=== PATIENT | female | born 1965 | race Caucasian/White ===

== ENCOUNTER → 2016-08-21 | Outpatient (CLI) | payer OTHER ==
[~2016-08-21] MED LIST: ACHD5005 PO; CYCL10TA9 PO; DULO60CA6 PO; FLUT16SP22 NS; IBP600T1 PO; LRT10T PO; PROP1TAB77 PO
--- OUTSIDE RECORDS SUMMARY | 2016-08-21 15:50 | XMS REPORT ---
Author VERONIQUE Dennis Organization [employer] Address Unknown Phone Unavailable Care Team Providers Care Scientific Director Name Role Phone VERONIQUE SIMS CP Unavailable Allergies, Adverse Reactions, Alerts Substance Reaction Event Type Sulfamethoxazole Info Not Available Drug Allergy Problems Problem Type Condition Code Onset Dates Condition Status Problem Other seasonal allergic rhinitis J30.2 Active Problem Arthritis M19.90 Active Problem Anxiety F41.9 Active Assessment Pain in left hip M25.552 Active Assessment Pain in right hip M25.551 Active Medications Medication Code System Code Instructions Start Date End Date Status Dosage Diclofenac Sodium [facility] [address]-24 75 MG Orally Twice a day 1 tablet Omeprazole [facility] [address]-02 40 MG Orally Once a day Aug 01, 2015 1 capsule Citalopram Hydrobromide [facility] [address]-30 20 MG Orally Once a day 1 tablet Procedures Procedure Coding System Code Date Office Visit, Est Pt., Level 2 CPT-4 05668 Mar 20, 2016 DRAIN/INJECT, JOINT/BURSA CPT-4 72964 Mar 20, 2016 Vital Signs Date/Time: Mar 20, 2016 Cardiac Monitoring Heart Rate 72 bpm Weight 158.1 lbs Height 68 in BMI 24.04 Index Blood Pressure Diastolic 82 mmHg Blood Pressure Systolic 108 mmHg Results No Known Results Summary Purpose [employer] Submission
--- NOTE | 2016-08-21 16:24 | Diagnostic Imaging Report ---
EXAM: Three views of the left ribs. INDICATION: Left rib pain. FINDINGS: There is suggestion of a nondisplaced fracture along the anterior aspect of the left sixth rib. No displaced fracture. The left lung demonstrates pleural thickening in the apex with no pneumothorax. No effusion seen. IMPRESSION: Suggestion of a nondisplaced fracture along the anterior aspect of the left sixth rib. Report called to FARIDA Phillips, at 4:23 p.m. 08/21/2015/noemy Report faxed to [phone] Dictated by: Dictated on workstation # [id number]
== END ==
LOC: RAD 15:46
PROVIDERS: ATTEND Nurse Practitioner Family
DX: R07.81 Pleurodynia (principal)
CPT/HCPCS: 71100

== ENCOUNTER → 2018-04-16 | Outpatient (CLI) | payer OTHER ==
--- NOTE | 2018-04-17 19:32 | Diagnostic Imaging Report ---
INDICATION: Routine screening. COMPARISON: Prior mammogram from 05/20/2015 and 02/03/2014. EXAMINATION: 2D and 3D bilateral screening mammography was performed with CAD. FINDINGS: Scattered fibroglandular densities are identified, bilaterally. Slightly nodular densities are identified in the right breast, one of which is superiorly located and posterior and the second is inferiorly located and posterior. No corresponding density on the CC view is seen. The left breast is unremarkable. No suspicious calcifications are seen. IMPRESSION: BI-RADS 0. Right breast densities. Additional views including spot compression and 90 degree lateral views are recommended. Dictated by: Dictated on workstation # [id number]
== END ==
LOC: RAD 15:35
PROVIDERS: ATTEND Obstetrics & Gynecology
DX: Z12.31 Encounter for screening mammogram for malignant neoplasm of breast (principal)
CPT/HCPCS: 77067

== ENCOUNTER → 2018-05-19 | Outpatient (CLI) | payer OTHER ==
--- NOTE | 2018-05-19 15:20 | Diagnostic Imaging Report ---
INDICATION: Right breast densities. Patient presents for additional views. COMPARISON: Recent screening study from 04/16/2018. TECHNIQUE: 2D and 3D unilateral right diagnostic mammography was performed including an exaggerated CC view, spot compression ML views, and a conventional 90 degree lateral view. FINDINGS: The right breast is heterogeneously dense. Densities in the upper and lower posterior depth right breast are seen which appear to show some dispersion on spot compression 3D views. There is a small circumscribed nodule in the upper outer right breast that has benign features. This is separate from the ill-defined densities described on screening mammography. No spiculated mass is seen. No suspicious calcifications are identified. IMPRESSION: Additional views show some persistent mild density in the upper and lower outer aspect of the right breast, likely representing fibroglandular tissue. Even so, sonographic interrogation of these areas is recommended and will be performed today. ACR BI-RADS Category 0: Incomplete. (Needs additional imaging evaluation). Result letter will be mailed to the patient. Note: At least 10% of breast cancer is not imaged by mammography. Dictated by: Dictated on workstation # [id number]
--- NOTE | 2018-05-19 17:14 | Diagnostic Imaging Report ---
INDICATION: Asymmetric densities noted in the right breast. The study is performed for further evaluation. CORRELATION is made with a diagnostic mammogram earlier the same day and screening mammogram from 04/16/2018. FINDINGS: Sonographic interrogation of the upper and lower outer aspects of the right breast was performed. There is a benign-appearing lymph node at the 10 o'clock location of the right breast 7 cm from the nipple measuring approximately 3 mm x 4 mm. This is identified on the mammogram. No other sonographic abnormality is seen. No suspicious sonographic finding is seen to account for the asymmetric densities noted mammographically. These most likely represented fibroglandular tissue. IMPRESSION: BI-RADS category 3. No suspicious sonographic abnormality is seen. Even so, followup right mammogram in 6 months is recommended to confirm stability of previously noted densities. ACR BI-RADS Category 3: Probably benign findings. Result letter will be mailed to the patient. Note: At least 10% of breast cancer is not imaged by mammography. Dictated by: Dictated on workstation # [id number]
== END ==
LOC: RAD 14:20
PROVIDERS: ATTEND Obstetrics & Gynecology
DX: R92.2 Inconclusive mammogram (principal)

== ENCOUNTER → 2020-06-28 | Outpatient (CLI) | payer OTHER ==
--- NOTE | 2020-06-28 14:30 | Diagnostic Imaging Report ---
INDICATION: Screening. The current study was also evaluated with a Computer Aided Detection (CAD) system. 3-D Tomographic imaging was also performed. Comparison made with prior examination from 04/16/2018, 05/20/2015, 02/03/14. FINDINGS: There are scattered fibroglandular densities bilaterally. There are a few benign-type calcifications. There is no dominant mass, spiculated lesions or suspicious calcification identified. Skin, nipples and axilla are unremarkable IMPRESSION: Category 2 benign ACR BI-RADS Category 2: Benign findings. Result letter will be mailed to the patient. Note: At least 10% of breast cancer is not imaged by mammography. Dictated by: Dictated on workstation # [id number]
== END ==
LOC: RAD 11:00
PROVIDERS: ATTEND Obstetrics & Gynecology
DX: Z12.31 Encounter for screening mammogram for malignant neoplasm of breast (principal)
CPT/HCPCS: 77063; 77067

== ENCOUNTER 2020-10-23 15:09 | Emergency (ER) | payer OTHER ==
[~2020-10-23] VITALS: Ht 172.7 cm; Wt 72.5 kg
[2020-10-23 15:14] VITALS: BP 126/77
[2020-10-23] MEDS ORDERED: TETANUS,DIPTH,PERTUSS P/F (BOOSTRIX) 0.5 ML VIAL IM ONE (15:30)
[2020-10-23] MEDS ORDERED: L.E.T. SOLUTION 3 ML SYR TOP ONE (15:30)
[2020-10-23] MEDS ORDERED: AMOX-358 PO (15:36)
--- NOTE | 2020-10-23 15:40 | ED Integumentary General ---
General Chief Complaint: Bite-Animal/Human/Insect Stated Complaint: R ARM DOG BITE Nursing Triage Note: PT AMB TO TRIAGE WITH WITH COMPLAINT OF DOG BITE TO RIGHT UPPER ARM. STATES DOG WAS A FRIENDS DOG AND IS UP TO DATE ON IMMUNIZATIONS. PT IS NOT UP TO DATE ON TETANUS. Source: patient Exam Limitations: no limitations History of Present Illness Date Seen by Provider: Oct 23, 2020 Time Seen by Provider: 15:20 Initial Comments This is a well-appearing 54-year-old female presents to the ER with complaints of dog bite to her right upper arm. States that her friend's boxer bit her apx. 20 minutes prior to arrival. States he is up to date on his rabies vaccine. No active bleeding. Last tetanus unknown. Allergies and Home Medications Allergies Coded Allergies: Sulfa (Sulfonamide Antibiotics) (Unverified Allergy, Unknown, 06/28/20) Home Medications Amoxicillin/Potassium Clav 1 Each Tablet, 1 EACH PO BID Prescribed by: VY PETTIT on 10/23/20 153 Cyclobenzaprine Hcl 10 Mg Tablet, 1 EACH PO TID PRN Prescribed by: JORGE LUIS ROBERTSON on 04/07/131914 Hydrocodone Bit/Acetaminophen 1 Each Tablet, 1 EACH PO Q4H PRN Prescribed by: JORGE LUIS ROBERTSON on 04/07/131914 Ibuprofen 600 Mg Tab, 600 MG PO Q6H PRN, (Reported) Loratadine 10 Mg Tab, 10 MG PO DAILY, (Reported) Patient Home Medication List Home Medication List Reviewed: Yes Review of Systems Review of Systems Constitutional: no symptoms reported EENTM: no symptoms reported Respiratory: no symptoms reported Cardiovascular: no symptoms reported Gastrointestinal: no symptoms reported Genitourinary: no symptoms reported Musculoskeletal: no symptoms reported Skin: see HPI Psychiatric/Neurological: No Symptoms Reported Endocrine: No Symptoms Reported Hematologic/Lymphatic: No Symptoms Reported Past Seepmxn-[place]-Vzwtlr Hx Patient Social History Alcohol Use: Regular Use Number of Drinks Today: 0 Smoking Status: Never a Smoker Recent Infectious Disease Expo: No Immunizations Up To Date Tetanus Booster (TDap): More than 5yrs PED Vaccines UTD: Yes Past Medical History Surgeries: Yes (UTERINE ABLATION) Respiratory: No Cardiac: No Neurological: No Reproductive Disorders: Yes (endometriosis) Female Reproductive Disorders: Endometriosis Sexually Transmitted Disease: No Gastrointestinal: No Musculoskeletal: No Endocrine: No Cancer: No Psychosocial: Yes Anxiety Integumentary: No Blood Disorders: No Adverse Reaction/Blood Tranf: No Physical Exam Vital Signs Vital Signs - First Documented 10/23/20 15:14 Pulse 90 Resp 20 B/P (MAP) 126/77 (93) Pulse Ox 96 O2 Delivery Room Air Capillary Refill : Less Than 3 Seconds General Appearance: WD/WN, no apparent distress HEENT: PERRL/EOMI, normal ENT inspection Neck: full range of motion, normal inspection Cardiovascular: regular rate, rhythm, no murmur Respiratory: lungs clear, normal breath sounds Extremities: normal range of motion, normal inspection, no pedal edema Neurologic/Psychiatric: no motor/sensory deficits, alert, normal mood/affect, oriented x 3 Skin: normal color, warm/dry Skin Problem Location: other (right upper bicep) Skin Problem Character: linear, swelling, other (golfball size area of swelling, ecchymosis, and erythema with small scratches and one 0.5cm open area to subcut tissue. No bleeding. ) Progress/Results/Core Measures Results/Orders My Orders Orders - VY PETTIT APRN Dipht,Pertuss(Acell),Tet Adult (Boostrix (10/23/20 15:30) Let Solution (Let Solution) (10/23/20 15:30) Medications Given in ED Current Medications Medications Dose Ordered Sig/John Route Start Time Stop Time Status Last Admin Dose Admin Diphtheria/ Tetanus/Acell Pertussis 0.5 ml ONCE ONCE IM 10/23/20 15:30 10/23/20 15:31 DC 10/23/20 15:52 0.5 ML Tetracaine/ Epinephrine/ Lidocaine 3 ml ONCE ONCE TOP 10/23/20 15:30 10/23/20 15:31 DC 10/23/20 15:51 3 ML Vital Signs/I&O 10/23/20 15:14 Pulse 90 Resp 20 B/P (MAP) 126/77 (93) Pulse Ox 96 O2 Delivery Room Air Blood Pressure Mean: 93 Progress Progress Note : Progress Note Patient examined and in no acute distress. She is noted to have small superficial teeth dunne, no puncture dunne appreciated she does have 0.5 cm area that is open down to the subcut tissue, however there is no active bleeding. As this is a dog bite will opt to allow the tissue to heal from inside out. Orders placed for LET to the area prior to thoroughly cleansing it with chlorhexidine and saline wash. Applied Xeroform, Telfa, Brian bandage to keep area covered. Discussed that eventhough we did extensive cleaning and will be placed on Augmentin prophylactically she still has a chance of site becoming infected. If she develops any signs or symptoms of infection she needs to have her arm checked out again. She verbalized understanding. Tetanus updated today. Departure Impression Primary Impression: Dog bite Disposition: 01 HOME, SELF-CARE Condition: Improved Departure-Patient Inst. Decision time for Depature: 19:20 Referrals: [facility] (PCP/Family) Primary Care Physician Patient Instructions: Animal Bites ED Add. Discharge Instructions: Plan: 1. Cleanse area daily and change dressing as directed in ED. Keep area covered with dressing. 2. Take antibiotics as directed and complete full course. 3. Your Tetanus was updated today. Use ice 20 minutes at a time for swelling. Keep arm elevated. 4. Monitor for signs of infection: fever, chills, swelling, redness, greenish drainage. 5. Return to ER with any new or worsening symptoms. All discharge instructions reviewed with patient and/or family. Voiced understanding. Scripts Amoxicillin/Potassium Clav (Augmentin 875-125 Tablet) 1 Each Tablet 1 EACH PO BID for 7 Days, #14 TAB 0 Refills Prov: VY PETTIT [employer] 10/23/20 VY PETTIT [employer] Oct 23, 2020 15:40
== END 2020-10-23 16:17 | disposition home or self-care (01) ==
LOC: EDUNIT# 15:09 → ER 15:11
DX: S41.151A Open bite of right upper arm, initial encounter (principal); Z88.2 Allergy status to sulfonamides; Z23 Encounter for immunization; W54.0XXA Bitten by dog, initial encounter
CPT/HCPCS: 90715